=== PATIENT | male | born 1950 | race African-American/Black ===

== ENCOUNTER 2017-10-22 15:08 | Emergency (ER) | payer OTHER ==
[~2017-10-22] VITALS: Ht 177.8 cm; Wt 117.9 kg
[2017-10-22 17:59] LABS: Basophils # (auto) 0 uL; Eosinophils # (auto) 0.2 uL; Eosinophils % (auto) 1.9 % (0.0-7.0); Lymphocytes # (auto) 2.5 uL; Monocytes # (auto) 0.7 uL; Nucleated Red Blood Cells % 0.2 %
[2017-10-22 18:03] LABS: Basophils % (auto) 0.6 % (0.0-2.0); Hematocrit 38.8 % (41.0-53.0); Hemoglobin 13.1 g/dL (13.5-17.5); Lymphocytes % (auto) 28.2 % (10.0-50.0); Mean Corpuscular Hemoglobin 26.9 pg (28.0-32.0); Mean Corpuscular Hgb Conc. 33.8 g/dL (32.0-36.0); Mean Corpuscular Volume 79.5 fL (80.0-100.0); Monocytes % (auto) 7.7 % (0.0-12.0); Neutrophils # (auto) 5.5 uL; Neutrophils % (auto) 61.6 % (37.0-80.0); Platelet Count (auto) 251 10^3/uL (140-450); Red Blood Cells 4.88 10^6/uL (4.5-5.90); White Blood Cell 8.9 10^3/uL (4.4-10.8)
[2017-10-22 18:14] LABS: Albumin 3.6 g/dL (3.4-5.0); Anion Gap 13 (5-15); Blood Urea Nitrogen 18 mg/dL (7-18); Calcium 8.8 mg/dL (8.5-10.1); Carbon Dioxide 24 mmol/L (21-32); Chloride 98 mmol/L (98-107); Glucose 188 mg/dL (74-106); Potassium 3.7 mmol/L (3.5-5.1); Sodium 135 mmol/L (136-145)
[2017-10-22 18:17] LABS: Alanine Aminotransferase 24 U/L (16-61); Aspartate Aminotransferase 15 U/L (15-37); BUN/Creatinine Ratio 14.6; GFR African American 76 mL/min; GFR Non-African American 63 mL/min
[2017-10-22 18:22] LABS: Alkaline Phosphatase 78 U/L (45-117); Bilirubin, Total 0.5 mg/dL (0.2-1.0); Total Protein 7.4 g/dL (6.4-8.2)
[2017-10-22] MEDS ORDERED: SODIUM CHLORIDE 0.9% 500 ML IV ONE (18:35)
[2017-10-22] MEDS ORDERED: KETOROLAC TROMETH 30 MG/ML 1ML VIAL IV ONE (18:45)
[2017-10-22 20:00] VITALS: BP 136/73
== END 2017-10-22 20:14 | disposition home or self-care (01) ==
LOC: ER 15:16
DX: B34.9 Viral infection, unspecified (principal); M79.1 Myalgia; I10 Essential (primary) hypertension; E11.9 Type 2 diabetes mellitus without complications
CPT/HCPCS: 36415; 71046; 80053; 82962; 83880; 84484; 85025; 87804; 93005; 94761; 96361; 96374; 99285; J1885; J7030; 87400

== ENCOUNTER 2017-11-05 08:42 | Emergency (ER) | payer OTHER ==
[~2017-11-05] VITALS: Ht 182.9 cm; Wt 122.5 kg
[2017-11-05] MEDS ORDERED: PROMETHAZINE HCL 25 MG/ML 1ML IM ONE (10:30)
[2017-11-05] MEDS ORDERED: MEPERIDINE HCL (50 MG/ML) 1 ML VIAL IM ONE (10:30)
[2017-11-05 11:19] VITALS: BP 146/79
== END 2017-11-05 11:19 | disposition home or self-care (01) ==
LOC: ER 08:42 → EDBD 08:42 → ER 11:19
DX: M48.061 Spinal stenosis, lumbar region without neurogenic claudication (principal); G89.29 Other chronic pain; M54.5 Low back pain; E11.9 Type 2 diabetes mellitus without complications; I10 Essential (primary) hypertension
CPT/HCPCS: 72131; 82962; 93005; 96372; 99284; J2175; J2550